=== PATIENT | female | born 1990 | race Caucasian/White ===

== ENCOUNTER 2019-01-17 08:05 | Emergency (ER) | payer BC ==
[2019-01-17 08:30] VITALS: BP 109/62
[2019-01-17] MEDS ORDERED: Penicillin G Benzathine/Procaine 600-600 1.2 Millunits/2 ML Syringe IM ONE (08:44)
[2019-01-17] MEDS ORDERED: Ibuprofen Susp 100 MG/5 ML 5 ML UD Cup PO ONE (08:44)
[2019-01-17] MEDS ORDERED: Dexamethasone 4 MG/ML SDV IVPUSH ONE (08:44)
--- NOTE | 2019-01-17 08:54 | EDM.PDOC ---
ED HPI GENERAL MEDICAL PROBLEM - General Chief Complaint: ENT Problem Stated Complaint: ACHES SORE THROAT Time Seen by Provider: 01/17/19 08:18 Source of Information: Reports: Patient History Limitations: Reports: No Limitations - History of Present Illness INITIAL COMMENTS - FREE TEXT/NARRATIVE: 28-year-old female with onset of sore throat and headache yesterday morning and then proceeded to have body aches and subjective fever. The symptoms worsened since yesterday. She reports that she has had trouble swallowing because of the pain. She has had less by mouth intake but she has been able to drink liquids. She did have some nausea yesterday with some gagging but she has had no nausea today and no vomiting. He rates pain as a 6/10. It is a sore pain in her throat that is worse with swallowing and it is an aching pain all over her body. Mild cough. No real difficulty breathing. No nasal congestion. There are no other associated signs or symptoms. There are no other modifying factors. 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) Generalized Pain Score (Numeric/FACES): 6 - Related Data Allergies Allergy/AdvReac Type Severity Reaction Status Date / Time nickel Allergy Rash Verified 03/15/16 05:35 Home Meds: Home Meds Ondansetron [Zofran ODT] 4 mg PO Q6H PRN #10 tab.dis 01/17/19 [Rx] Venlafaxine [Effexor] 75 mg PO DAILY 01/17/19 [History] traZODone HCl [Trazodone HCl] 50 mg PO BEDTIME 01/17/19 [History] 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: Psychiatric History: Reports: Anxiety, Depression - Past Surgical History HEENT Surgical History: Reports: Oral Surgery ([place] teeth extraction) GI Surgical History: Reports: Cholecystectomy Female Surgical History: Reports: Hysterectomy Social & Family History - Tobacco Use Smoking Status *Q: Current Every Day Smoker Years of Tobacco use: 10 Packs/Tins Daily: 0.5 Used Tobacco, but Quit: No Second Hand Smoke Exposure: No - Caffeine Use Caffeine Use: Reports: Soda - Alcohol Use Alcohol Use History: Yes Alcohol Use Frequency: Rarely - Recreational Drug Use Recreational Drug Use: No - Living Situation & Occupation 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 ED ROS ENT - Review of Systems Review Of Systems: See Below Constitutional: Reports: Fever, Malaise HEENT: Reports: Throat Pain Respiratory: Reports: Cough (Mild cough). Denies: Shortness of Breath Cardiovascular: Reports: No Symptoms Endocrine: Reports: Fatigue GI/Abdominal: Reports: Nausea (Yesterday but none today) Musculoskeletal: Reports: Other (Total body aches) Skin: Reports: No Symptoms Neurological: Reports: Headache Hematologic/Lymphatic: Reports: No Symptoms Immunologic: Reports: No Symptoms ED EXAM, ENT - Physical Exam Exam: See Below Exam Limited By: No Limitations General Appearance: Alert, Moderate Distress, Obese Eye Exam: Bilateral Eye: EOMI, Normal Inspection, PERRL Ears: Normal External Exam, Normal Canal, Hearing Grossly Normal, Normal TMs Nose: Normal Inspection, Normal Mucousa Mouth/Throat: Pharyngeal Erythema, Tonsillar Erythema, Tonsillar Exudates, Other (No uvula deviation and no evidence of peritonsillar abscess) Head: Atraumatic, Normocephalic Neck: Supple, Full Range of Motion, Lymphadenopathy (R), Lymphadenopathy (L) Respiratory/Chest: No Respiratory Distress, Lungs Clear, Normal Breath Sounds, No Accessory Muscle Use, Chest Non-Tender Cardiovascular: Normal Peripheral Pulses, Regular Rate, Rhythm, No JVD GI/Abdominal: Normal Bowel Sounds, Soft, Non-Tender, No Organomegaly, No Distention, No Mass Back: Normal Inspection Extremities: Normal Inspection, Normal Range of Motion, Non-Tender, No Pedal Edema, Normal Capillary Refill Neurological: Alert, CN II-XII Intact, Normal Cognition, No Motor/Sensory Deficits Skin: Warm, Dry, Intact, Normal Color, No Rash Course - Vital Signs Last Recorded V/S: Last Vital Signs Temp 37.3 C 01/17/19 08:10 Pulse 108 H 01/17/19 08:10 Resp 18 01/17/19 08:10 BP 109/62 01/17/19 08:10 Pulse Ox 100 01/17/19 08:10 - Orders/Labs/Meds Orders: Active Orders 24 hr Category Date Time Status Dexamethasone Med 01/17/19 08:44 Once 10 mg IVPUSH ONETIME ONE Ibuprofen [Motrin 100 MG/5 ML Susp] Med 01/17/19 08:44 Once 400 mg PO ONETIME ONE Pen G Ricardo/Pen G Procaine [Bicillin C-R 600/600] Med 01/17/19 08:44 Once 1.2 millunits IM ONETIME ONE - Re-Assessments/Exams Free Text/Narrative Re-Assessment/Exam: 01/17/19 08:58: The patient's rapid strep was positive. She does not appear to be dehydrated at this point and I think with treatment she will be able to orally hydrate herself. I do not feel that she needs IV fluids at this point. The patient was given Decadron 10 mg by mouth and Bicillin CR 1.2 million units IM. Departure - Departure Time of Disposition: 09:00 Disposition: Home, Self-Care 01 Condition: Good Clinical Impression: Strep throat - Discharge Information Prescriptions: Ondansetron [Zofran ODT] 4 mg PO Q6H PRN #10 tab.dis PRN Reason: Nausea/Vomiting Instructions: Strep Throat Referrals: Zion Meier MD [Primary Care Provider] - Additional Instructions: Your strep screen was positive so you have strep throat. You should drink plenty of fluids. You should rest. You were given a penicillin injection in the emergency department and this should be all the antibody treatment the you need for your strep throat. You are also given Decadron (steroid medication and an anti-inflammatory medication) in the emergency department to help decrease the swelling in your throat and help with your pain. You may take Tylenol 1000 mg by mouth every 6 hours as needed for fever or pain. You may also take ibuprofen 800 mg by mouth every 8 hours as needed for fever or pain. Medication as prescribed (Zofran 4 mg ODT). Back to the emergency department for inability to swallow liquids, trouble breathing, unrelenting vomiting or any other concerning sign or symptom. - My Orders Last 24 Hours: My Active Orders 01/17/19 08:44 Dexamethasone 10 mg IVPUSH ONETIME ONE Ibuprofen [Motrin 100 MG/5 ML Susp] 400 mg PO ONETIME ONE Pen G Ricardo/Pen G Procaine [Bicillin C-R 600/600] 1.2 millunits IM ONETIME ONE - Assessment/Plan Last 24 Hours: My Active Orders 01/17/19 08:44 Dexamethasone 10 mg IVPUSH ONETIME ONE Ibuprofen [Motrin 100 MG/5 ML Susp] 400 mg PO ONETIME ONE Pen G Ricardo/Pen G Procaine [Bicillin C-R 600/600] 1.2 millunits IM ONETIME ONE
== END 2019-01-17 09:15 | disposition home or self-care (01) ==
LOC: FB.ED 08:05
DX: J02.0 Streptococcal pharyngitis (principal); F32.9 Major depressive disorder, single episode, unspecified; Z91.048 Other nonmedicinal substance allergy status; F17.210 Nicotine dependence, cigarettes, uncomplicated
CPT/HCPCS: 87880; 96372; 99283; A9270; J0558; J1100